=== PATIENT | male | born 1960 | race African-American/Black ===

== ENCOUNTER 2017-10-03 20:54 | Observation (INO) | payer OTHER ==
[2017-10-03] MEDS: SODIUM CHLORIDE 0.9% FLUSH 10 ML FLUSH IVF (21:20)
[2017-10-03 21:24] LABS: AUTOMATED NEUTROPHIL # 7.3 TH/MM3 (1.8-7.7); BASOPHIL % 0.4 % (0.0-2.0); EOSINOPHIL # 0.2 TH/MM3 (0-0.4); HEMATOCRIT 33.3 % (39.0-51.0); HEMOGLOBIN 10.7 GM/DL (13.0-17.0); LYMPH % 22.9 % (9.0-44.0); LYMPHOCYTE # 2.5 TH/MM3 (1.0-4.8); MEAN CELL VOLUME 82.3 FL (80.0-100.0); MEAN CORPUSCULAR HEMOGLOBIN 26.4 PG (27.0-34.0); MEAN CORPUSCULAR HGB CONC 32.1 % (32.0-36.0); MONO % 8.3 % (0.0-8.0); MONOCYTE # 0.9 TH/MM3 (0-0.9); NEUT % 66.4 % (16.0-70.0); PLATELET COUNT 197 TH/MM3 (150-450); RED BLOOD COUNT 4.05 MIL/MM3 (4.50-5.90); RED CELL DISTRIBUTION WIDTH 17.8 % (11.6-17.2); WHITE BLOOD COUNT 10.9 TH/MM3 (4.0-11.0)
[2017-10-03 21:33] LABS: CHLORIDE 102 MEQ/L (98-107); HEMO FLAGS DIFF FINAL; POTASSIUM 3.5 MEQ/L (3.5-5.1); SODIUM (NA) 138 MEQ/L (136-145)
[2017-10-03 21:36] LABS: ANION GAP 6 MEQ/L (5-15); BICARBONATE 30.1 MEQ/L (21.0-32.0); CALCIUM 8.5 MG/DL (8.5-10.1); GLUCOSE,RANDOM 167 MG/DL (74-106)
[2017-10-03 21:37] LABS: BLOOD UREA NITROGEN 21 MG/DL (7-18)
[2017-10-03 21:38] LABS: APTT (PATIENT) 28.4 SEC (24.3-30.1); PROTHROMBIN TIME - PATIENT 10.1 SEC (9.8-11.6)
[2017-10-03 21:40] LABS: GLOMERULAR FILTRATION RATE 40 ML/MIN (>89)
[2017-10-03 21:43] LABS: CREATINE KINASE 171 U/L (39-308)
[2017-10-03 21:44] LABS: TROPONIN I 0.02 NG/ML (0.02-0.05)
[2017-10-03 21:55] LABS: CKMB 1.7 NG/ML (0.5-3.6)
[2017-10-03 22:51] LABS: BILIRUBIN, URINE NEG (NEG); BLOOD, URINE NEG (NEG); GLUCOSE,URINE NEG (NEG); KETONE, URINE TRACE mg/dL (NEG); NITRITE,URINE NEG (NEG); PH, URINE 5.5 (5.0-8.5); URINE COLOR YELLOW (YELLW/STRAW); URINE LEUKOCYTE ESTERASE TRACE (NEG)
[2017-10-03] MEDS: SODIUM CHLOR 0.9% 1000 ML INJ 1,000 ML IV (22:51)
[2017-10-03] MEDS: DIAZEPAM 5 MG TAB PO (22:51)
[2017-10-03] MEDS: SODIUM CHLORIDE 0.9% FLUSH 10 ML FLUSH IV FLUSH (22:52)
[2017-10-03 22:56] LABS: COMMENT (UR) CULT NOT INDICATED; CULTURE IF INDICATED CULT NOT INDICATED; RBC, URINE 0-3 /hpf (0-3); SQUAMOUS EPITHELIAL CELL URINE 0-5 /hpf (0-5)
[2017-10-03 23:00] LABS: AMPHETAMINE, URINE NEG (NEG)
[2017-10-03 23:08] LABS: BARBITURATES, URINE NEG (NEG)
[2017-10-03 23:10] LABS: BENZODIAZEPINE,URINE POS (NEG)
[2017-10-03 23:12] LABS: CANNABINOIDS, URINE NEG (NEG)
[2017-10-03 23:13] LABS: COCAINE, URINE NEG (NEG)
[2017-10-04] MEDS: CARVEDILOL 6.25 MG TAB PO (00:01)
[2017-10-04 00:49] LABS: CREATINE KINASE 242 U/L (39-308); TROPONIN I LESS THAN 0.02 NG/ML (0.02-0.05)
[2017-10-04 01:01] LABS: CKMB 1.4 NG/ML (0.5-3.6)
[2017-10-04 04:06] LABS: CREATINE KINASE 144 U/L (39-308)
[2017-10-04 04:07] LABS: TROPONIN I LESS THAN 0.02 NG/ML (0.02-0.05)
[2017-10-04 04:18] LABS: CKMB 1.5 NG/ML (0.5-3.6)
[2017-10-04] MEDS: INSULIN ASPART SUPPLEMENTAL SCALE SQ ×2 (07:57→12:00)
[2017-10-04] MEDS: TAMSULOSIN HCL 0.4 MG CAP PO (08:30)
[2017-10-04] MEDS: PREGABALIN 75 MG CAP PO (08:31)
[2017-10-04] MEDS: PANTOPRAZOLE SOD 40 MG DELAYED RELEASE TAB PO (08:31)
[2017-10-04] MEDS: ASPIRIN 81 MG CHEW TAB PO (08:31)
[2017-10-04] MEDS: SODIUM CHLORIDE 0.9% FLUSH 10 ML FLUSH IV FLUSH (08:32)
[2017-10-04 08:49] LABS: CHLORIDE 103 MEQ/L (98-107); POTASSIUM 3.3 MEQ/L (3.5-5.1); SODIUM (NA) 139 MEQ/L (136-145)
[2017-10-04 08:52] LABS: ANION GAP 7 MEQ/L (5-15); BICARBONATE 29.4 MEQ/L (21.0-32.0); BLOOD UREA NITROGEN 22 MG/DL (7-18); CALCIUM 8.5 MG/DL (8.5-10.1); GLUCOSE,RANDOM 163 MG/DL (74-106)
[2017-10-04 08:55] LABS: GLOMERULAR FILTRATION RATE 42 ML/MIN (>89)
[2017-10-04] MEDS ORDERED: ATORVASTATIN 40 MG TAB PO (21:00)
== END 2017-10-04 14:50 | disposition home or self-care (01) ==
LOC: PHED 20:54 → PHEDA 22:01 → PH3A 23:25
DX: R07.89 Other chest pain (principal); I12.9 Hypertensive chronic kidney disease with stage 1 through stage 4 chronic kidney disease, or unspecified chronic kidney disease; N18.2 Chronic kidney disease, stage 2 (mild); E11.22 Type 2 diabetes mellitus with diabetic chronic kidney disease; E78.5 Hyperlipidemia, unspecified; E11.40 Type 2 diabetes mellitus with diabetic neuropathy, unspecified; I44.1 Atrioventricular block, second degree; I44.0 Atrioventricular block, first degree; I49.3 Ventricular premature depolarization; R00.1 Bradycardia, unspecified; R94.31 Abnormal electrocardiogram [ECG] [EKG]; R20.0 Anesthesia of skin; J44.9 Chronic obstructive pulmonary disease, unspecified; N17.9 Acute kidney failure, unspecified; M54.2 Cervicalgia; M54.9 Dorsalgia, unspecified; G89.29 Other chronic pain; N40.0 Benign prostatic hyperplasia without lower urinary tract symptoms; E66.01 Morbid (severe) obesity due to excess calories; Z79.899 Other long term (current) drug therapy; Z79.82 Long term (current) use of aspirin; Z79.84 Long term (current) use of oral hypoglycemic drugs; Z82.49 Family history of ischemic heart disease and other diseases of the circulatory system
CPT/HCPCS: 71045; 76775; 80048; 80307; 81001; 82550; 82552; 84484; 85025; 85610; 85730; 93005; 96360; 99285-25

== ENCOUNTER 2017-12-12 10:26 | Inpatient (IN) ==
[2017-12-12 10:57] LABS: Hematocrit 28.3 % (39.0-51.0); Hemoglobin 9.5 gm/dL (13.0-17.0); Mean Corpuscular HGB Conc 33.7 % (32.0-36.0); Mean Corpuscular Hemoglobin 27.6 pg (27.0-34.0); Mean Corpuscular Volume 81.8 fL (80.0-100.0); Mean Platelet Volume 9.5 fL (7.0-11.0); Platelet Count 189 th/mm3 (150-450); Red Blood Count 3.45 mil/mm3 (4.50-5.90); Red Cell Distribution Width 20.6 % (11.6-17.2); White Blood Count 15.1 th/mm3 (4.0-11.0)
[2017-12-12 11:06] LABS: Calcium 7.6 mg/dL (8.5-10.1); Carbon Dioxide 31.7 meq/L (21.0-32.0)
[2017-12-12 11:14] LABS: Troponin I 0.04 ng/mL (0.02-0.05)
--- NOTE | 2017-12-12 11:22 | XR ---
EXAM DATE: 12/12/2017 11:01 AM EDT AGE/SEX: 57 years / Male INDICATIONS: . Short of breath, chest pain. CLINICAL DATA: This is the patient's initial encounter. Patient reports that signs and symptoms have been present for 3 days and indicates a pain score of 3/10. MEDICAL/SURGICAL HISTORY: Diabetes mellitus type II. Hypertension. . cardiac cath COMPARISON: [facility], CHEST SINGLE AP, 10/03/2017. . FINDINGS: The heart is at the upper limits of normal in size. The mediastinal contours are within normal limits . The parenchyma is clear. Exam is somewhat limited due to the patient's size. The visualized bony st ructures are grossly intact. Study appears similar to previous dated 10/03/2017. CONCLUSION: Limited exam due to the patient's size. No acute abnormality identified. Electronically signed by: Hussain Harden MD 12/12/2017 11:21 AM EDT
[2017-12-12] MEDS ORDERED: Acetaminophen 325 MG Tablet PO ONE (11:28)
[2017-12-12 11:31] LABS: Prothrombin Time 10.2 sec (9.8-11.6)
--- NOTE | 2017-12-12 11:33 | ED ---
HPI General Chief complaint: Respiratory Symptoms Stated complaint: Evac/SOB Time Seen by Provider: 12/12/17 10:28 Source: patient Mode of arrival: wheelchair History of Present Illness HPI narrative: 57yM presenting with dyspnea. The patient says that he's had shortness of breath, cough, and lower extremity swelling for the past week; he called EMS today because he was unable to catch his breath. Admits to cough productive of pink frothy sputum and wheezing. Denies lightheadedness, diaphoresis, chest pain, or palpitations. He was given solumedrol and nebs by EMS with minimal improvement in symptoms. As per previous records, he has a history of hypertension, hyperlipidemia, morbid obesity, diabetes, chronic pain , diabetic neuropathy, and chronic kidney disease stage II. Family history non-contributory. Related Data Allergies Allergy/AdvReac Type Severity Reaction Status Date / Time Sulfa (Sulfonamide Allergy Severe RASH Verified 12/12/17 10:53 Antibiotics) Review of Systems Except as stated in HPI: all other systems reviewed are negative Constitutional Reports headache(s) Eyes Denies blurry vision ENT Denies nasal congestion Cardiovascular Denies chest pain Respiratory Reports cough and Reports dyspnea Gastrointestinal Denies nausea Genitourinary Denies dysuria Musculoskeletal Reports back pain Neurologic Denies confusion Psychiatric Denies confusion PMFSH History History Provided By: Patient Medical History Medical History Diabetes 1.5, managed as type 2 (Acute) Diabetic neuropathy (Acute) GERD (gastroesophageal reflux disease) (Acute) Osteoarthritis (arthritis due to wear and tear of joints) (Acute) CHF (congestive heart failure) (Acute) COPD (chronic obstructive pulmonary disease) (Acute) Surgical History Surgical History History of carpal tunnel surgery of left wrist (Acute) Hx of rotator cuff surgery (Acute) Social History Social History Substance History: No History of Abuse Second Hand Smoke Exposure: No Smoking Status: Never smoker How Often Do You Have a Drink Containing Alcohol: Monthly or less Recent Travel in [facility] within the Last 8 Weeks: No Recent Out of Country Travel within the Last 8 Weeks: No Exam Const Other: Appears uncomfortable, increased work of breathing HENMT Head: normocephalic and atraumatic Face and sinus: normal facial exam Eyes General: appearance normal, both eyes and all related structures Pupils: PERRL Chest Chest: normal inspection of the chest Resp Other: Increased work of breathing, able to speak in complete sentences, O2 sats high 60s on room air and improved to low 90s on 5L nasal cannula Diminished breath sounds at bases bilaterally, (+) expiratory wheeze and crackles bilaterally Cardio Rate: regular rate Rhythm: regular rhythm GI Inspection: non-distended Palpation: soft and nontender Skin General: no rashes or lesions noted Neuro General: alert, awake, oriented x3 and no focal motor deficits Extrem Other: 2-3+ pitting edema above knees bilaterally Psych Affect: normal affect Course Initial Documented Vital Signs Pulse Rate 74 12/12/17 10:28 Last Documented Vital Signs Temperature 99.3 F 12/12/17 10:40 Pulse Rate 71 12/12/17 11:30 Respiratory Rate 24 12/12/17 11:30 Blood Pressure 142/73 H 12/12/17 11:30 Pulse Oximetry 95 12/12/17 11:30 Critical Care Time Critical Care Time: Yes Total Critical Care Time: 35 Attestation: Total critical care time 35 minutes. This includes examining and stabilizing the patient, gathering a history from a source other than the patient (i.e., chart review, EMS), formulating a differential diagnosis, ordering and interpreting laboratory tests and EKG, ordering and interpreting radiology tests, discussing the patient's care with other providers (internal medicine), management of heparin drip and supplemental oxygen for profound hypoxia, and re-evaluation at frequent intervals. Medical Decision Making MDM Narrative Medical decision making narrative: Assessment: 57yM presenting with shortness of breath, cough, hypoxia Plan: EKG and monitor Labs, including trop CXR ASA Nitro Lasix Reassess Addendum: Patient given SL nitro and lasix, O2 sats now mid 90s on 5L NC. Labs remarkable for acute on chronic kidney insufficiency, elevated D dimer, leukocytosis, hyperglycemia, and initial troponin of 0.04. This patient cannot go home as he needs cardiac monitoring, supplemental O2, heparin drip, further diagnostic testing to r/o PE and ACS, and re-evaluation at frequent intervals. I discussed the results of all labs and imaging with the patient as well as plan to keep him in the hospital; he understands and agrees. Case discussed with Dr. Castelan of internal medicine service, who requests [facility] bed. Differential Diagnosis Differential Diagnosis: Differential diagnosis includes, but is not limited to: CHF exacerbation, COPD exacerbation, pneumonia, pleural effusion Medical Records Medical records reviewed: Yes I reviewed the patient's medical records. Lab Data Lab results reviewed: Yes I reviewed the patient's lab results. Result diagrams: 12/12/17 10:30 12/12/17 10:30 Lab Results 12/12/17 12/12/17 12/12/17 Range/Units 10:30 10:30 10:30 CBC w Diff Slide review pending WBC 15.1 H (4.0-11.0) th/mm3 RBC 3.45 L (4.50-5.90) mil/mm3 Hgb 9.5 L (13.0-17.0) gm/dL Hct 28.3 L (39.0-51.0) % MCV 81.8 (80.0-100.0) fL MCH 27.6 (27.0-34.0) pg MCHC 33.7 (32.0-36.0) % RDW 20.6 H (11.6-17.2) % Plt Count 189 (150-450) th/mm3 MPV 9.5 (7.0-11.0) fL WBC Differential Manual diff final Seg Neuts % (Manual) 76 H (16-70) % Band Neuts % (Manual) 1 (0-6) % Lymphocytes % (Manual) 15 (9-44) % Monocytes % (Manual) 6 (0-8) % Basophils % (Manual) 2 (0-2) % Abs Neuts (Manual) 11.6 H (1.8-7.7) th/mm3 Differential Comment . Platelet Estimate Normal (Normal) Platelet Morphology Normal (Normal) Basophilic Stippling Faint H (None) PT 10.2 (9.8-11.6) sec INR 1.0 Ratio D-Dimer Quant (PE/DVT) 2.30 H (0.00-0.50) mg/L FEU Sodium 140 (136-145) meq/L Potassium 4.0 (3.5-5.1) meq/L Chloride 102 (98-107) meq/L Carbon Dioxide 31.7 (21.0-32.0) meq/L Anion Gap 6 (5-15) meq/L BUN 24 H (7-18) mg/dL Creatinine 2.40 H (0.60-1.30) mg/dL Estimated GFR 34 L (>89) mL/min Random Glucose 231 H (74-106) mg/dL Calcium 7.6 L (8.5-10.1) mg/dL Troponin I 0.04 (0.02-0.05) ng/mL B-Natriuretic Peptide (0-100) pg/mL 12/12/17 Range/Units 10:30 CBC w Diff WBC (4.0-11.0) th/mm3 RBC (4.50-5.90) mil/mm3 Hgb (13.0-17.0) gm/dL Hct (39.0-51.0) % MCV (80.0-100.0) fL MCH (27.0-34.0) pg MCHC (32.0-36.0) % RDW (11.6-17.2) % Plt Count (150-450) th/mm3 MPV (7.0-11.0) fL WBC Differential Seg Neuts % (Manual) (16-70) % Band Neuts % (Manual) (0-6) % Lymphocytes % (Manual) (9-44) % Monocytes % (Manual) (0-8) % Basophils % (Manual) (0-2) % Abs Neuts (Manual) (1.8-7.7) th/mm3 Differential Comment Platelet Estimate (Normal) Platelet Morphology (Normal) Basophilic Stippling (None) PT (9.8-11.6) sec INR Ratio D-Dimer Quant (PE/DVT) (0.00-0.50) mg/L FEU Sodium (136-145) meq/L Potassium (3.5-5.1) meq/L Chloride (98-107) meq/L Carbon Dioxide (21.0-32.0) meq/L Anion Gap (5-15) meq/L BUN (7-18) mg/dL Creatinine (0.60-1.30) mg/dL Estimated GFR (>89) mL/min Random Glucose (74-106) mg/dL Calcium (8.5-10.1) mg/dL Troponin I (0.02-0.05) ng/mL B-Natriuretic Peptide 486 H (0-100) pg/mL Imaging Data Radiologist's impression: Chest X-Ray 12/12/17 10:28 CONCLUSION: Limited exam due to the patient's size. No acute abnormality identified. ECG Data Interpretation: Rate: 78 BPM Rhythm: Sinus [place]: Normal Intervals: 1st degree AV block, QTc 421 ms Q waves: III, aVF T waves: Inverted in III, aVF ST segments: No elevations or depressions Impression: Non-specific EKG, no changes as compared to EKG from 10/04/2017. Discharge Plan Discharge Disposition Patient Disposition: 30 Still Patient Discharge Condition Condition: Serious Discharge Details Diagnosis: Hypoxia, D-dimer, elevated, Acute respiratory distress, Acute on chronic renal insufficiency Physicians Team ED Provider: Albina Jonas Primary Care Provider: UNKNOWN, Attending Provider: Marva Castelan Discharge Interventions Interventions: Vital Signs Last Done: 12/12/17 11:30 Status ED Status: Admitted Observation Patient
[2017-12-12 11:38] LABS: Lymphocytes 15 % (9-44); Monocytes 6 % (0-8)
[2017-12-12 11:41] LABS: Platelet Estimate Normal (Normal); Platelet Morphology Normal (Normal)
[2017-12-12 11:46] LABS: D-Dimer 2.3 mg/L FEU (0.00-0.50)
[2017-12-12] MEDS ORDERED: Heparin 10,000 UNITS/10 ML Vial (for IV use) IV.PUSH STA (12:12)
[2017-12-12] MEDS ORDERED: Heparin Drip 25,000 UNIT/250 ML BAG IV.CONT PRN (12:12)
[2017-12-12 12:43] LABS: ABG Base Excess 5.5 mmol/L (-2-2); ABG PCO2 52 mmHg (38-42); ABG PO2 64 mmHg (61-120)
[2017-12-12] MEDS ORDERED: Dextrose 50% in Water 50 ML Vial IV.PUSH PRN (13:50)
--- NOTE | 2017-12-12 14:18 | P.HPIM ---
History of Present Illness Primary Care Physician: UNKNOWN Chief Complaint: This patient has shortness of breath History of Present Illness: Patient is a pleasant 67-year-old gentleman with diabetes and hypertension who comes in hospital complaining of increased work of breathing and shortness of breath for the last 3 days. He saw his doctor in was scheduled to follow-up but became increasingly short of breath and so he called 9 1. New quite hypoxemic on arrival. He notes no fevers or chills but did have a cough with production of pink frothy sputum. Patient reports 40 pound weight gain in about a month. Recently he had back surgery done and is has a sedentary style life. He has not had any fevers or chills. He does have CPAP nebulizer at home. He has a history of asthma but denies cardiac history. He has been admitted to the hospital for acute respiratory failure with gross hypoxemia at 70% on room air he is required 5 L O2 to maintain sats above 90%. He is admitted to the intermediate critical care unit - Diagnosis (1) Respiratory failure (2) Asthma (3) CHF (congestive heart failure) (4) DM2 (diabetes mellitus, type 2) Inpatient Certification: I certify that the inpatient services were ordered in accordance with Medicare regulations governing the order. This includes certification that hospital inpatient services are reasonable and necessary and in the case of services not specified as inpatient-only under 42 CFR 419.22(n), that they are appropriately provided as inpatient services in accordance to with the 2-midnight benchmark under 43 CFR 412.3(e) Estimated Total Length of Stay (Days): 4 Plans for Post Hospital Care: Home health Review of Systems All other systems reviewed negative except as stated in [facility] - History History Provided By: Patient - Medical History Medical History: Medical History (Last Reviewed 12/12/17 @ 14:07 by Marva Castelan MD) Diabetes 1.5, managed as type 2 Diabetic neuropathy GERD (gastroesophageal reflux disease) Osteoarthritis (arthritis due to wear and tear of joints) CHF (congestive heart failure) COPD (chronic obstructive pulmonary disease) - Surgical History Surgical History: Surgical History (Last Reviewed 12/12/17 @ 14:07 by Marva Castelan MD) History of carpal tunnel surgery of left wrist Hx of rotator cuff surgery - Family History Family History: Family History (Last Updated 12/12/17 @ 14:07 by Marva Castelan MD) Other Congestive heart failure Coronary artery disease - Tobacco History Second Hand Smoke Exposure: No Smoking Status: Never smoker - Alcohol History How Often Do You Have a Drink Containing Alcohol: Never - Substance Use History Substance History: No History of Abuse - Travel History Recent Travel in the [place] Within the Last 8 Weeks: No Recent Travel Out of the Country Within the Last 8 Weeks: No - Immunization History Tetanus Immunization: >5 Years Hx Influenza Vaccine This Season: Yes Medications and Allergies Active Medications: Active Medications Acetaminophen (Tylenol) 650 mg PO Q6H PRN PRN Reason: PAIN 1-10 AND/OR FEVER >101F Albuterol (Duoneb Neb (Yaz)) 1 ampul NEB Q6HR WHILE AWAKE NEB YAZ Aspirin (Ecotrin) 81 mg PO DAILY YAZ Atorvastatin Calcium (Lipitor) 80 mg PO HS YAZ Carvedilol (Coreg) 6.25 mg PO BID YAZ Chlorhexidine Gluconate (Chlorhexidine 2% Cloth) 3 pack TOPICAL DAILY@0400 YAZ Stop: 12/18/17 03:59 Chlorhexidine Gluconate (Chlorhexidine 2% Cloth) 3 pack TOPICAL DAILY@0400 PRN PRN Reason: Extra cloth needed Stop: 12/18/17 03:59 Clonidine HCl (Catapres) 0.2 mg PO BID [facility] Dextrose (D50w Vial) 50 ml IV.PUSH UNSCH PRN PRN Reason: PER HYPOGLYCEMIA PROTOCOL Diazepam (Valium) 5 mg PO HS YAZ Famotidine (Pepcid) 20 mg PO BID YAZ Furosemide (Lasix Inj) 20 mg IV.PUSH DAILY YAZ Glipizide (Glucotrol) 10 mg PO BID YAZ Glucagon (Glucagon Inj) 1 mg OTHER PRN PRN PRN Reason: for Hypoglycemia Protocol Heparin Sodium (Porcine) (Heparin Inj) 5,000 units SQ Q12HR YAZ Insulin Aspart (Novolog Insulin Correctional Sugar Inj) 0 unit SQ ACHS AND 3AM YAZ; Protocol Methylprednisolone Sodium Succinate (Solumedrol Inj) 40 mg IV.PUSH Q12HR YAZ Non-Formulary Medication (Losartan-Hydrochlorothiazide [Losartan- Hydrochlorothiazide]) 1 tab PO DAILY [facility] Non-Formulary Medication (Pregabalin [Pregabalin]) 150 mg PO BID YAZ Pioglitazone HCl (Actos) 15 mg PO DAILY YAZ Sodium Chloride (Ns Flush) 2 ml IV.FLUSH UNSCH PRN PRN Reason: FLUSH AFTER USING IV ACCESS Tamsulosin HCl (Flomax) 0.4 mg PO DAILY YAZ Zolpidem Tartrate (Ambien) 10 mg PO HS [facility] Allergies Allergy/AdvReac Type Severity Reaction Status Date / Time Sulfa (Sulfonamide Allergy Severe RASH Verified 12/12/17 10:53 Antibiotics) Home Medications Medication Instructions Recorded Confirmed Type amlodipine 10 mg PO DAILY 12/12/17 12/12/17 History aspirin 81 mg PO DAILY 12/12/17 12/12/17 History atorvastatin 80 mg PO HS 12/12/17 12/12/17 History carvedilol 6.25 mg PO BID 12/12/17 12/12/17 History celecoxib 200 mg PO BID 12/12/17 12/12/17 History clonidine HCl 1 tab PO BID 12/12/17 12/12/17 History diazepam 5 mg PO HS 12/12/17 12/12/17 History glipizide 10 mg PO BID 12/12/17 12/12/17 History losartan-hydrochlorothiazide 1 tab PO DAILY 12/12/17 12/12/17 History metformin 500 mg PO BID 12/12/17 12/12/17 History omeprazole 40 mg PO DAILY 12/12/17 12/12/17 History pioglitazone 15 mg PO DAILY 12/12/17 12/12/17 History pregabalin 150 mg PO BID 12/12/17 12/12/17 History tamsulosin 0.4 mg PO DAILY 12/12/17 12/12/17 History zolpidem 10 mg PO HS 12/12/17 12/12/17 History Exam Vital signs: Vital Signs 12/12/17 10:28 12/12/17 10:40 12/12/17 10:45 Temperature 99.3 F Pulse Rate 74 84 Respiratory Rate 24 Blood Pressure 158/66 H Pulse Oximetry 93 L 78 L 93 L 12/12/17 11:30 12/12/17 12:44 Temperature Pulse Rate 71 74 Respiratory Rate 24 24 Blood Pressure 142/73 H Pulse Oximetry 95 93 L Intake & Output 12/11/17 12/12/17 12/12/17 18:59 06:59 18:59 Weight 190 kg Narrative: GENERAL: Patient short of breath with minimal exertion SKIN: Warm and dry. No rashes or ecchymotic injuries EYES: Pupils equal and round. No scleral icterus. No injection or drainage. ENT: External ear exam normal. No acute nasal bleeding or discharge. Mucous membranes pink and moist. CARDIOVASCULAR: Cardiac with minimal exertion. No murmurs gallops or rubs appreciated RESPIRATORY: Decreased airflow and rhonchorous breath sounds bilaterally worse on the right GASTROINTESTINAL: Abdomen soft, non-tender, nondistended. Hepatic and splenic margins not palpable. MUSCULOSKELETAL: Upper extremity swelling, lower extremities without clubbing, cyanosis, or edema. No obvious deformities. NEUROLOGICAL: Awake and alert. No obvious cranial nerve deficits. Motor grossly within normal limits. Five out of 5 muscle strength in the arms and legs. Normal speech. Results - Labs CBC & Chem 7: 12/12/17 10:30 12/12/17 10:30 Labs: Short CBC 12/12/17 Range/Units 10:30 WBC 15.1 H (4.0-11.0) th/mm3 Hgb 9.5 L (13.0-17.0) gm/dL Hct 28.3 L (39.0-51.0) % Plt Count 189 (150-450) th/mm3 BMP 12/12/17 10:30 Sodium 140 Potassium 4.0 Chloride 102 Carbon Dioxide 31.7 BUN 24 H Creatinine 2.40 H Calcium 7.6 L Cardiac Enzymes 12/12/17 Range/Units 10:30 Troponin I 0.04 (0.02-0.05) ng/mL - Imaging Impressions Chest X-Ray 12/12/17 10:28 CONCLUSION: Limited exam due to the patient's size. No acute abnormality identified. Caprini VTE Risk Assessment Caprini VTE Risk Assessment: Moderate/High Risk (score >= 2) Caprini Risk Assessment Model: Point Value = 1 Point Value = 2 Point Value = 3 Point Value = 5 Age 41-60 Minor surgery BMI > 25 kg/m2 Swollen legs Varicose veins or History of unexplained or recurrent spontaneous Oral contraceptives or hormone replacement Sepsis (< 1 month) Serious lung disease, including pneumonia (< 1 month) Abnormal pulmonary function Acute myocardial infarction Congestive heart failure (< 1 month) History of inflammatory bowel disease Medical patient at bed rest Age 61-74 Arthroscopic surgery Major open surgery (> 45 min) Laparoscopic surgery (> 45 min) Malignancy Confined to bed (> 72 hours) Immobilizing plaster cast Central venous access Age >= 75 History of VTE Family history of VTE Factor V Leiden Prothrombin [id number] Lupus anticoagulant Anticardiolipin antibodies Elevated serum homocysteine Heparin-induced thrombocytopenia Other congenital or acquired thrombophilia Stroke (< 1 month) Elective arthroplasty Hip, pelvis, or leg fracture Acute spinal cord injury (< 1 month) Prophylaxis Regimen: Total Risk Factor Score Risk Level Prophylaxis Regimen 0-1 Low Early ambulation 2 Moderate Order ONE of the following: *Sequential Compression Device (SCD) *Heparin 5000 units SQ BID 3-4 Higher Order ONE of the following medications: *Heparin 5000 units SQ TID *Enoxaparin/Lovenox 40 mg SQ daily (WT < 150 kg, CrCl > 30 mL/min) *Enoxaparin/Lovenox 30 mg SQ daily (WT < 150 kg, CrCl > 10-29 mL/min) *Enoxaparin/Lovenox 30 mg SQ BID (WT < 150 kg, CrCl > 30 mL/min) AND/OR *Sequential Compression Device (SCD) 5 or more Highest Order ONE of the following medications: *Heparin 5000 units SQ TID (Preferred with Epidurals) *Enoxaparin/Lovenox 40 mg SQ daily (WT < 150 kg, CrCl > 30 mL/min) *Enoxaparin/Lovenox 30 mg SQ daily (WT < 150 kg, CrCl > 10-29 mL/min) *Enoxaparin/Lovenox 30 mg SQ BID (WT < 150 kg, CrCl > 30 mL/min) AND *Sequential Compression Device (SCD) Assessment and Plan - Assessment (1) Respiratory failure Code(s): J96.90 - Respiratory failure, unspecified, unspecified whether with hypoxia or hypercapnia Status: Acute Plan: Acute hypoxemic respiratory failure. Apparently he has been evaluated for oxygen by his primary care doctor. He appears to have multifactorial respiratory failure due to congestive heart failure and asthma exacerbation. Continue with oxygen as needed BiPAP as needed (patient has home CPAP) Diurese aggressively follow renal function and electrolytes Continue with oxygen supplementation Follow-up echocardiogram (2) Asthma Code(s): J45.909 - Unspecified asthma, uncomplicated Status: Acute Plan: Continue with steroids and bronchodilators (3) CHF (congestive heart failure) Code(s): I50.9 - Heart failure, unspecified Status: Acute Plan: Etiology unclear, follow-up echocardiogram Diuresis Patient has a mildly elevated BNP but significant edema on exam, follow-up cardiac enzymes (4) DM2 (diabetes mellitus, type 2) Code(s): E11.9 - Type 2 diabetes mellitus without complications Status: Acute Plan: he will continue with home medications for diabetes for the most part Monitor with ADA diet and sliding scale insulin H&P: Quality - VTE Deep Vein Thrombosis/Pulmonary Embolism Present on Admission: Yes
[2017-12-12] MEDS: MethylPREDNISolone Sod Succinate Inj 40 MG/ML Vial IV.PUSH SCH (15:33)
[2017-12-12] MEDS: Carvedilol 6.25 MG Tablet PO SCH ×2 (15:33→21:27)
[2017-12-12] MEDS: glipiZIDE 10 MG Tablet PO SCH (16:40)
[2017-12-12] MEDS: Insulin NovoLOG Aspart Correctional Sugar Inj SQ SCH ×2 (17:28→21:32)
--- NOTE | 2017-12-12 20:18 | ECG ---
Date Performed: 12/12/2017 Time Performed: 10:34:56 PTAGE: 57 years EKG: Sinus rhythm WITH FIRST DEGREE AV BLOCK LOW QRS VOLTAGE IN PRECORDIAL LEADS PATTERN CONSISTENT WITH PULMONARY DIS EASE ABNORMAL ECG PREVIOUS TRACING : 10/04/2017 02.59 DOCTOR: Natalie Gooden Interpretating Date/Time 12/12/2017 20:16:21
[2017-12-12] MEDS ORDERED: Famotidine 20 MG Tablet PO SCH (21:00)
[2017-12-12] MEDS: Pregabalin 75 MG Capsule PO SCH (21:28)
[2017-12-12] MEDS: diazePAM 5 MG Tablet PO SCH (21:28)
[2017-12-12] MEDS: Zolpidem Tartrate 5 MG Tablet PO SCH (21:29)
[2017-12-12] MEDS: Heparin - SQ 10,000 UNITS/ML Vial SQ SCH (21:30)
[2017-12-12] MEDS: Acetaminophen 325 MG Tablet PO PRN (21:36)
[2017-12-13] MEDS: Insulin NovoLOG Aspart Correctional Sugar Inj SQ SCH ×5 (03:02→21:05)
[2017-12-13] MEDS: Chlorhexidine Gluconate 2% 1 Pack (2 Cloths) TOPICAL SCH (03:55)
[2017-12-13] MEDS: MethylPREDNISolone Sod Succinate Inj 40 MG/ML Vial IV.PUSH SCH ×2 (03:59→17:33)
[2017-12-13] MEDS ORDERED: Chlorhexidine Gluconate 2% 1 Pack (2 Cloths) TOPICAL PRN (04:00)
[2017-12-13 04:39] LABS: Baso # (Auto) 0.4 th/mm3 (0.0-0.2); Baso % (Auto) 2.5 % (0.0-2.0); Eos % (Auto) 0.1 % (0.0-4.0); Hematocrit 30.6 % (39.0-51.0); Hemoglobin 9.8 gm/dL (13.0-17.0); Lymph # (Auto) 1.2 th/mm3 (1.0-4.8); Lymph % (Auto) 8.1 % (9.0-44.0); Mean Corpuscular Hemoglobin 26.7 pg (27.0-34.0); Mean Corpuscular Volume 83.4 fL (80.0-100.0); Mean Platelet Volume 8.8 fL (7.0-11.0); Mono # (Auto) 0.5 th/mm3 (0.0-0.9); Mono % (Auto) 3.3 % (0.0-8.0); Neut # (Auto) 12.5 th/mm3 (1.8-7.7); Platelet Count 207 th/mm3 (150-450); Red Blood Count 3.67 mil/mm3 (4.50-5.90); Red Cell Distribution Width 19.9 % (11.6-17.2); White Blood Count 14.6 th/mm3 (4.0-11.0)
[2017-12-13 05:00] LABS: Alanine Aminotransferase 35 U/L (12-78); Albumin 2.7 g/dL (3.4-5.0); Anion Gap 5 meq/L (5-15); Aspartate Aminotransferase 19 U/L (15-37); Blood Urea Nitrogen 29 mg/dL (7-18); Calcium 8.2 mg/dL (8.5-10.1); Carbon Dioxide 32.4 meq/L (21.0-32.0); Chloride 101 meq/L (98-107); Glomerular Filtration Rate 31 mL/min (>89); Glucose,Random 240 mg/dL (74-106); Potassium 4.9 meq/L (3.5-5.1); Sodium 138 meq/L (136-145); Total Protein 7.1 g/dL (6.4-8.2)
[2017-12-13 05:02] LABS: Ovalocytes 1+; Platelet Estimate Normal (Normal); Platelet Morphology Normal (Normal)
[2017-12-13 05:07] LABS: Alkaline Phosphatase 96 U/L (45-117)
[2017-12-13 05:33] LABS: ABG Base Excess 5.7 mmol/L (-2-2); ABG PCO2 47 mmHg (38-42); ABG PO2 68 mmHg (61-120)
[2017-12-13] MEDS: Acetaminophen 325 MG Tablet PO PRN (06:06)
[2017-12-13] MEDS: Heparin - SQ 10,000 UNITS/ML Vial SQ SCH ×2 (08:38→20:37)
[2017-12-13] MEDS: Famotidine 20 MG Tablet PO SCH ×2 (08:40→20:35)
[2017-12-13] MEDS: Pregabalin 75 MG Capsule PO SCH ×2 (08:40→20:36)
[2017-12-13] MEDS: glipiZIDE 10 MG Tablet PO SCH ×2 (08:41→17:34)
[2017-12-13] MEDS: Carvedilol 6.25 MG Tablet PO SCH ×2 (08:43→20:36)
[2017-12-13] MEDS: hydroCHLOROthiazide 25 MG Tablet PO SCH (08:43)
[2017-12-13] MEDS ORDERED: Non-Formulary Drug (Losartan-Hydrochlorothiazide [Losartan-Hydrochlorothiazide] 1 TAB) PO SCH (09:00)
--- NOTE | 2017-12-13 10:44 | P.PNIM ---
Subjective Interval history: Patient seen and evaluated in follow-up for congestive heart failure exacerbation. Patient with respiratory failure requiring oxygen/hypoxemic. 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 Patient reports today's having back pain and would like his Lortab Physical Exam Vital signs: Vital Signs 12/12/17 10:28 12/12/17 10:40 12/12/17 10:45 Temperature 99.3 F Pulse Rate 74 84 Respiratory Rate 24 Blood Pressure 158/66 H Pulse Oximetry 93 L 78 L 93 L 12/12/17 11:30 12/12/17 12:10 12/12/17 12:44 Temperature Pulse Rate 71 74 Respiratory Rate 24 22 24 Blood Pressure 142/73 H Pulse Oximetry 95 93 L 12/12/17 13:28 12/12/17 14:00 12/12/17 16:00 Temperature Pulse Rate 70 70 74 Respiratory Rate 22 20 Blood Pressure 149/78 H 161/91 H 160/94 H Pulse Oximetry 96 96 12/12/17 16:50 12/12/17 17:00 12/12/17 18:00 Temperature Pulse Rate 68 66 72 Respiratory Rate 19 17 20 Blood Pressure 156/93 H 163/84 H 157/85 H Pulse Oximetry 95 95 95 12/12/17 19:00 12/12/17 19:15 12/12/17 20:00 Temperature 98.4 F 98 F Pulse Rate 76 72 72 Respiratory Rate 23 17 18 Blood Pressure 140/78 156/96 H Pulse Oximetry 94 L 94 L 98 12/12/17 21:00 12/12/17 22:00 12/12/17 22:06 Temperature Pulse Rate 76 76 Respiratory Rate 24 22 18 Blood Pressure 156/73 H 151/75 H Pulse Oximetry 91 L 94 L 12/12/17 23:00 12/13/17 00:00 12/13/17 01:00 Temperature 98 F Pulse Rate 72 66 66 Respiratory Rate 29 H 15 15 Blood Pressure 160/86 H 142/92 H 148/83 H Pulse Oximetry 95 97 97 12/13/17 02:00 12/13/17 03:00 12/13/17 04:00 Temperature 97.6 F Pulse Rate 66 66 66 Respiratory Rate 31 H 29 H 15 Blood Pressure 164/83 H 151/83 H 156/90 H Pulse Oximetry 96 96 95 12/13/17 05:07 12/13/17 06:00 12/13/17 06:37 Temperature Pulse Rate 72 68 Respiratory Rate 29 H 27 H 17 Blood Pressure 154/90 H 146/97 H Pulse Oximetry 94 L 99 12/13/17 07:00 12/13/17 07:33 12/13/17 08:00 Temperature 98.4 F Pulse Rate 68 72 72 Respiratory Rate 15 25 H Blood Pressure 165/96 H 161/95 H Pulse Oximetry 100 97 95 12/13/17 09:00 12/13/17 09:02 12/13/17 09:53 Temperature Pulse Rate 74 72 Respiratory Rate 18 19 20 Blood Pressure 173/97 H 174/99 H Pulse Oximetry 98 98 12/13/17 10:00 Temperature Pulse Rate 70 Respiratory Rate 24 Blood Pressure 181/97 H Pulse Oximetry 97 Intake & Output 12/12/17 12/13/17 12/13/17 18:59 06:59 18:59 Intake Total 720 / 720 510 / 510 Output Total 675 / 675 950 / 950 Balance 45 / 45 -440 / -440 Weight 181.8 kg 181.5 kg Intake: Oral 720 / 720 510 / 510 Output: Urine 675 / 675 950 / 950 Other: Date of Last Bowel Movement 12/11/17 Weight On Admission 190 kg Narrative: GENERAL: Patient calm resting complaining of back pain with movement and shortness of breath SKIN: Warm and dry. No rashes or ecchymotic injuries EYES: Pupils equal and round. No scleral icterus. No injection or drainage. ENT: External ear exam normal. No acute nasal bleeding or discharge. Mucous membranes pink and moist. CARDIOVASCULAR: Regular rate and rhythm. No murmurs gallops or rubs appreciated RESPIRATORY: Good air flow and effort without accessory muscle use. Clear to auscultation. Breath sounds equal bilaterally. GASTROINTESTINAL: Abdomen soft, non-tender, nondistended. Hepatic and splenic margins not palpable. MUSCULOSKELETAL: Extremities without clubbing, cyanosis, or edema. No obvious deformities. NEUROLOGICAL: Awake and alert. No obvious cranial nerve deficits. Motor grossly within normal limits. Five out of 5 muscle strength in the arms and legs. Normal speech. Results - Labs CBC & Chem 7: 12/13/17 04:30 12/13/17 04:30 Laboratory Results - last 24 hr 12/12/17 12/12/17 12/12/17 10:30 10:30 10:30 CBC w Diff Slide review pending WBC 15.1 H RBC 3.45 L Hgb 9.5 L Hct 28.3 L MCV 81.8 MCH 27.6 MCHC 33.7 RDW 20.6 H Plt Count 189 MPV 9.5 Neut % (Auto) Lymph % (Auto) Mckinley % (Auto) Eos % (Auto) Baso % (Auto) Neut # (Auto) Lymph # (Auto) Mckinley # (Auto) Eos # (Auto) Baso # (Auto) WBC Differential Manual diff final Diff Scan Seg Neuts % (Manual) 76 H Band Neuts % (Manual) 1 Lymphocytes % (Manual) 15 Monocytes % (Manual) 6 Basophils % (Manual) 2 Abs Neuts (Manual) 11.6 H Differential Comment . Platelet Estimate Normal Platelet Morphology Normal Basophilic Stippling Faint H Ovalocytes PT 10.2 INR 1.0 APTT D-Dimer Quant (PE/DVT) 2.30 H Puncture Site Patient Temperature O2 Saturation ABG pH ABG pCO2 ABG pO2 ABG HCO3 ABG O2 Content ABG Base Excess ABG Methemoglobin Alessandro Test Hemoglobin Carboxyhemoglobin O2 Delivery Device Liter Flow Inspired O2 Critical Value Sodium 140 Potassium 4.0 Chloride 102 Carbon Dioxide 31.7 Anion Gap 6 BUN 24 H Creatinine 2.40 H Estimated GFR 34 L POC Glucose Random Glucose 231 H Calcium 7.6 L Total Bilirubin AST ALT Alkaline Phosphatase Troponin I 0.04 B-Natriuretic Peptide Total Protein Albumin Nasal Screen MRSA (PCR) 12/12/17 12/12/17 12/12/17 10:30 10:30 12:38 CBC w Diff WBC RBC Hgb Hct MCV MCH MCHC RDW Plt Count MPV Neut % (Auto) Lymph % (Auto) Mckinley % (Auto) Eos % (Auto) Baso % (Auto) Neut # (Auto) Lymph # (Auto) Mckinley # (Auto) Eos # (Auto) Baso # (Auto) WBC Differential Diff Scan Seg Neuts % (Manual) Band Neuts % (Manual) Lymphocytes % (Manual) Monocytes % (Manual) Basophils % (Manual) Abs Neuts (Manual) Differential Comment Platelet Estimate Platelet Morphology Basophilic Stippling Ovalocytes PT INR APTT 34.9 H D-Dimer Quant (PE/DVT) Puncture Site Right radial Patient Temperature 98.6 O2 Saturation 89 L* ABG pH 7.39 ABG pCO2 52 H* ABG pO2 64 ABG HCO3 30 H ABG O2 Content 12.3 ABG Base Excess 5.5 H ABG Methemoglobin 1.0 Alessandro Test Present Hemoglobin 9.8 L Carboxyhemoglobin 2.1 O2 Delivery Device Nasal cannula Liter Flow 5.00 Inspired O2 21 Critical Value Yes Sodium Potassium Chloride Carbon Dioxide Anion Gap BUN Creatinine Estimated GFR POC Glucose Random Glucose Calcium Total Bilirubin AST ALT Alkaline Phosphatase Troponin I B-Natriuretic Peptide 486 H Total Protein Albumin Nasal Screen MRSA (PCR) 12/12/17 12/12/17 12/12/17 13:29 13:50 14:45 CBC w Diff WBC RBC Hgb Hct MCV MCH MCHC RDW Plt Count MPV Neut % (Auto) Lymph % (Auto) Mckinley % (Auto) Eos % (Auto) Baso % (Auto) Neut # (Auto) Lymph # (Auto) Mckinley # (Auto) Eos # (Auto) Baso # (Auto) WBC Differential Diff Scan Seg Neuts % (Manual) Band Neuts % (Manual) Lymphocytes % (Manual) Monocytes % (Manual) Basophils % (Manual) Abs Neuts (Manual) Differential Comment Platelet Estimate Platelet Morphology Basophilic Stippling Ovalocytes PT INR APTT D-Dimer Quant (PE/DVT) Puncture Site Patient Temperature O2 Saturation ABG pH ABG pCO2 ABG pO2 ABG HCO3 ABG O2 Content ABG Base Excess ABG Methemoglobin Alessandro Test Hemoglobin Carboxyhemoglobin O2 Delivery Device Liter Flow Inspired O2 Critical Value Sodium Potassium Chloride Carbon Dioxide Anion Gap BUN Creatinine Estimated GFR POC Glucose 183 H Random Glucose Calcium Total Bilirubin AST ALT Alkaline Phosphatase Troponin I 0.03 B-Natriuretic Peptide Total Protein Albumin Nasal Screen MRSA (PCR) Not detected 12/12/17 12/12/17 12/12/17 16:47 17:50 17:50 CBC w Diff WBC RBC Hgb Hct MCV MCH MCHC RDW Plt Count MPV Neut % (Auto) Lymph % (Auto) Mckinley % (Auto) Eos % (Auto) Baso % (Auto) Neut # (Auto) Lymph # (Auto) Mckinley # (Auto) Eos # (Auto) Baso # (Auto) WBC Differential Diff Scan Seg Neuts % (Manual) Band Neuts % (Manual) Lymphocytes % (Manual) Monocytes % (Manual) Basophils % (Manual) Abs Neuts (Manual) Differential Comment Platelet Estimate Platelet Morphology Basophilic Stippling Ovalocytes PT INR APTT 32.7 H D-Dimer Quant (PE/DVT) Puncture Site Patient Temperature O2 Saturation ABG pH ABG pCO2 ABG pO2 ABG HCO3 ABG O2 Content ABG Base Excess ABG Methemoglobin Alessandro Test Hemoglobin Carboxyhemoglobin O2 Delivery Device Liter Flow Inspired O2 Critical Value Sodium Potassium Chloride Carbon Dioxide Anion Gap BUN Creatinine Estimated GFR POC Glucose 259 H Random Glucose Calcium Total Bilirubin AST ALT Alkaline Phosphatase Troponin I Less than 0.02 L B-Natriuretic Peptide Total Protein Albumin Nasal Screen MRSA (PCR) 12/12/17 12/13/17 12/13/17 20:54 03:04 04:30 CBC w Diff Slide review pending WBC 14.6 H RBC 3.67 L Hgb 9.8 L Hct 30.6 L MCV 83.4 MCH 26.7 L MCHC 32.0 RDW 19.9 H Plt Count 207 MPV 8.8 Neut % (Auto) 86.0 H Lymph % (Auto) 8.1 L Mckinley % (Auto) 3.3 Eos % (Auto) 0.1 Baso % (Auto) 2.5 H Neut # (Auto) 12.5 H Lymph # (Auto) 1.2 Mckinley # (Auto) 0.5 Eos # (Auto) 0.0 Baso # (Auto) 0.4 H WBC Differential . Diff Scan Auto diff confirmed Seg Neuts % (Manual) Band Neuts % (Manual) Lymphocytes % (Manual) Monocytes % (Manual) Basophils % (Manual) Abs Neuts (Manual) Differential Comment . Platelet Estimate Normal Platelet Morphology Normal Basophilic Stippling Ovalocytes 1+ H PT INR APTT D-Dimer Quant (PE/DVT) Puncture Site Patient Temperature O2 Saturation ABG pH ABG pCO2 ABG pO2 ABG HCO3 ABG O2 Content ABG Base Excess ABG Methemoglobin Alessandro Test Hemoglobin Carboxyhemoglobin O2 Delivery Device Liter Flow Inspired O2 Critical Value Sodium Potassium Chloride Carbon Dioxide Anion Gap BUN Creatinine Estimated GFR POC Glucose 339 H 257 H Random Glucose Calcium Total Bilirubin AST ALT Alkaline Phosphatase Troponin I B-Natriuretic Peptide Total Protein Albumin Nasal Screen MRSA (PCR) 12/13/17 12/13/17 12/13/17 04:30 05:25 08:17 CBC w Diff WBC RBC Hgb Hct MCV MCH MCHC RDW Plt Count MPV Neut % (Auto) Lymph % (Auto) Mckinley % (Auto) Eos % (Auto) Baso % (Auto) Neut # (Auto) Lymph # (Auto) Mckinley # (Auto) Eos # (Auto) Baso # (Auto) WBC Differential Diff Scan Seg Neuts % (Manual) Band Neuts % (Manual) Lymphocytes % (Manual) Monocytes % (Manual) Basophils % (Manual) Abs Neuts (Manual) Differential Comment Platelet Estimate Platelet Morphology Basophilic Stippling Ovalocytes PT INR APTT D-Dimer Quant (PE/DVT) Puncture Site Right radial Patient Temperature 98.6 O2 Saturation 91 ABG pH 7.42 ABG pCO2 47 H ABG pO2 68 ABG HCO3 30 H ABG O2 Content 12.1 ABG Base Excess 5.7 H ABG Methemoglobin 0.5 Alessandro Test Y Hemoglobin 9.4 L Carboxyhemoglobin 1.7 O2 Delivery Device Nasal cannula Liter Flow 4.00 Inspired O2 Critical Value No Sodium 138 Potassium 4.9 D Chloride 101 Carbon Dioxide 32.4 H Anion Gap 5 BUN 29 H Creatinine 2.60 H Estimated GFR 31 L POC Glucose 242 H Random Glucose 240 H Calcium 8.2 L Total Bilirubin 0.9 AST 19 ALT 35 Alkaline Phosphatase 96 Troponin I B-Natriuretic Peptide Total Protein 7.1 Albumin 2.7 L Nasal Screen MRSA (PCR) - Imaging Impressions Chest X-Ray 12/12/17 10:28 CONCLUSION: Limited exam due to the patient's size. No acute abnormality identified. Assessment and Plan - Assessment (1) Respiratory failure Code(s): J96.90 - Respiratory failure, unspecified, unspecified whether with hypoxia or hypercapnia Status: Acute Plan: Acute hypoxemic respiratory failure. Apparently he has been evaluated for oxygen by his primary care doctor. He appears to have multifactorial respiratory failure due to congestive heart failure and asthma exacerbation. Continue with oxygen as needed BiPAP as needed (patient has home CPAP) Diurese aggressively follow renal function and electrolytes Continue with oxygen supplementation Follow-up echocardiogram (2) Asthma Code(s): J45.909 - Unspecified asthma, uncomplicated Status: Acute Plan: Continue with steroids and bronchodilators (3) CHF (congestive heart failure) Code(s): I50.9 - Heart failure, unspecified Status: Acute Plan: Etiology unclear, follow-up echocardiogram Diuresis 1.6 L out Patient has a mildly elevated BNP but significant edema on exam, cardiac enzymes stable (4) DM2 (diabetes mellitus, type 2) Code(s): E11.9 - Type 2 diabetes mellitus without complications Status: Acute Plan: he will continue with home medications for diabetes for the most part Monitor with ADA diet and sliding scale insulin Patient required 20 units of supplemental NovoLog, refuses Actos We will add low-dose long-acting Levemir and insulin with meals (5) Back pain Code(s): M54.9 - Dorsalgia, unspecified Status: Acute Plan: he says he takes Excedrin for migraines and Lortab for back pain We will resume - Plan Discharge Planning: Likely discharge in a.m., will need to verify home O2
--- NOTE | 2017-12-13 11:57 | ECHRPT ---
Indication: SHORTNESS OF BREATH CONCLUSIONS Normal left ventricular size. possible mild concentric left ventricular hypertrophy. technically limited study The left ventricular systolic function is moderately reduced with an estimated ejection fraction in the range of 40-45%. The left atrial size is mildly dilated. The right atrial size is mildly dilated. Trace mitral valve regurgitation. There is mild to moderate tricuspid valve regurgitation. The estimated pulmonary arterial pressure is 49.4 mmHg. BP: / HR: Rhythm: Sinus MEASUREMENTS (Male / Female) Normal Values Technical Quality:Fair 2D ECHO LV Diastolic Diameter PLAX 5.1 cm 4.2 - 5.9 / 3.9 - 5.3 cm LV Systolic Diameter PLAX 4.3 cm IVS Diastolic Thickness 1.9 cm 0.6 - 1.0 / 0.6 - 0.9 cm LVPW Diastolic Thickness 1.9 cm 0.6 - 1.0 / 0.6 - 0.9 cm LV Relative Wall Thickness 0.7 RV Internal Dim ED PLAX 2.9 cm LVOT Diameter 2.8 cm Aortic Root Diameter 4.1 cm LA Systolic Diameter LX 4.3 cm 3.0 - 4.0 / 2.7 - 3.8 cm M-MODE AV Cusp Separation MM 2.5 cm DOPPLER AV Peak Velocity 138.0 cm/s AV Peak Gradient 7.6 mmHg AV Mean Gradient 5.0 mmHg AV Velocity Time Integral 28.4 cm LVOT Peak Velocity 67.7 cm/s LVOT Peak Gradient 1.8 mmHg LVOT Velocity Time Integral 14.5 cm AV Area Cont Eq vti 3.1 cm AV Area Cont Eq pk 3.0 cm Mitral E Point Velocity 78.0 cm/s Mitral A Point Velocity 57.8 cm/s Mitral E to A Ratio 1.3 LV E' Lateral Velocity 10.1 cm/s Mitral E to LV E' Lateral Ratio 7.7 LV E' Septal Velocity 8.2 cm/s Mitral E to LV E' Septal Ratio 9.5 TR Peak Velocity 314.0 cm/s TR Peak Gradient 39.4 mmHg Right Atrial Pressure 10.0 mmHg Pulmonary Artery Systolic Pressu 49.4 mmHg Right Ventricular Systolic Press 49.4 mmHg PV Peak Velocity 67.7 cm/s PV Peak Gradient 1.8 mmHg FINDINGS LEFT VENTRICLE Normal left ventricular size. Severe concentric left ventricular hypertrophy. The left ventricular systolic function is moderately reduced with an estimated ejection fraction in the range of 40-45%. RIGHT VENTRICLE Normal right ventricular size and systolic function. LEFT ATRIUM The left atrial size is mildly dilated. RIGHT ATRIUM The right atrial size is mildly dilated. ATRIAL SEPTUM The interatrial septum not well visualized. AORTA The aortic root and proximal ascending aorta are normal in size on limited imaging. MITRAL VALVE Trace mitral valve regurgitation. AORTIC VALVE No aortic valve stenosis or regurgitation. TRICUSPID VALVE There is mild to moderate tricuspid valve regurgitation. The estimated pulmonary arterial pressure is 49.4 mmHg. PULMONARY VALVE The pulmonary valve is not well visualized. VESSELS The inferior vena cava was not well visualized. PERICARDIUM No pericardial effusion. Vince Garza MD, FACC, FSCAI (Electronically Signed) Final Date:13 December 2017 11:56
[2017-12-13] MEDS: Celecoxib 200 MG Capsule PO SCH ×2 (17:43→20:37)
[2017-12-13] MEDS: Zolpidem Tartrate 5 MG Tablet PO SCH (20:33)
[2017-12-13] MEDS: diazePAM 5 MG Tablet PO SCH (20:36)
[2017-12-13] MEDS ORDERED: Insulin Detemir Inj 1,000 UNIT/10 ML Vial SQ SCH (21:00)
[2017-12-14] MEDS: MethylPREDNISolone Sod Succinate Inj 40 MG/ML Vial IV.PUSH SCH (03:52)
[2017-12-14] MEDS: Insulin NovoLOG Aspart Correctional Sugar Inj SQ SCH ×3 (03:55→12:14)
[2017-12-14 05:44] LABS: Hematocrit 29.3 % (39.0-51.0); Hemoglobin 9.6 gm/dL (13.0-17.0); Mean Corpuscular HGB Conc 32.9 % (32.0-36.0); Mean Corpuscular Hemoglobin 27.5 pg (27.0-34.0); Mean Corpuscular Volume 83.5 fL (80.0-100.0); Mean Platelet Volume 9.4 fL (7.0-11.0); Platelet Count 210 th/mm3 (150-450); Red Cell Distribution Width 19.6 % (11.6-17.2); White Blood Count 16.8 th/mm3 (4.0-11.0)
[2017-12-14] MEDS: Chlorhexidine Gluconate 2% 1 Pack (2 Cloths) TOPICAL SCH (05:49)
[2017-12-14 06:15] LABS: Calcium 8.1 mg/dL (8.5-10.1); Carbon Dioxide 31.6 meq/L (21.0-32.0); Potassium 3.8 meq/L (3.5-5.1)
[2017-12-14] MEDS: hydroCHLOROthiazide 25 MG Tablet PO SCH (08:20)
[2017-12-14] MEDS: Pregabalin 75 MG Capsule PO SCH (08:20)
[2017-12-14] MEDS: glipiZIDE 10 MG Tablet PO SCH (08:20)
[2017-12-14] MEDS: Carvedilol 6.25 MG Tablet PO SCH (08:21)
[2017-12-14] MEDS: Famotidine 20 MG Tablet PO SCH (08:21)
[2017-12-14] MEDS: Celecoxib 200 MG Capsule PO SCH (08:21)
[2017-12-14] MEDS: Heparin - SQ 10,000 UNITS/ML Vial SQ SCH (08:22)
--- NOTE | 2017-12-14 13:44 | P.DS ---
Date of admission: 12/12/17 12:13 Primary care physician: UNKNOWN Brief History from admission: Patient is a pleasant 67-year-old gentleman with diabetes and hypertension who comes in hospital complaining of increased work of breathing and shortness of breath for the last 3 days. He saw his doctor in was scheduled to follow-up but became increasingly short of breath and so he called 9 1. New quite hypoxemic on arrival. He notes no fevers or chills but did have a cough with production of pink frothy sputum. Patient reports 40 pound weight gain in about a month. Recently he had back surgery done and is has a sedentary style life. He has not had any fevers or chills. He does have CPAP nebulizer at home. He has a history of asthma but denies cardiac history. He has been admitted to the hospital for acute respiratory failure with gross hypoxemia at 70% on room air he is required 5 L O2 to maintain sats above 90%. He is admitted to the intermediate critical care unit DS: Summary Hospital Course: 57-year-old male with history of type 2 diabetes, diabetic kidney disease, hypertension presented to the ER 2 days ago with dyspnea. Workup revealed elevated BNP at 486. He responded favorably to aggressive diuresis with output of 1.6 L overnight. Currently he says he is at his baseline and that he feels "great". Echocardiogram revealed an ejection fraction of 40-45%. He was given a prescription from the visit at [facility] on the day of admission to address his fluid overload but he did not have time to fill that before becoming more short of breath. Additionally he has a family history of kidney disease with both his mother and sister ending up on dialysis. I have explained to him the importance of following up with the machine shop instructor. He should also follow-up with his direct entry midwife. He is requesting to go home. He is certainly that he will be following up with [place] doctors tomorrow and arranging referrals to nephrology and cardiology. Home oxygen has been arranged , though today his oxygen is 98% on 1 L nasal cannula. It will be good to have oxygen at home on a as needed basis. I have instructed him to take the Lasix as prescribed by his primary care doctor. Further cardiac workup can be done as an outpatient, but in the meantime it is important to control his blood pressure and blood sugars. - Time Spent with Patient Total time spent providing and/or coordinating discharge services: - Quality: VTE Deep Vein Thrombosis/Pulmonary Embolism Present on Admission: Yes Exam Vital signs: Vital Signs 12/13/17 13:57 12/13/17 15:02 12/13/17 16:00 Temperature 97.5 F L 98.1 F Pulse Rate 78 70 70 Respiratory Rate 20 18 22 Blood Pressure 161/95 H 142/81 H Pulse Oximetry 97 95 12/13/17 16:10 12/13/17 16:14 12/13/17 17:00 Temperature Pulse Rate 70 70 74 Respiratory Rate 16 32 H 23 Blood Pressure 162/80 H 142/81 H Pulse Oximetry 97 96 93 L 12/13/17 18:00 12/13/17 19:00 12/13/17 19:36 Temperature Pulse Rate 74 68 73 Respiratory Rate 28 H 28 H 21 Blood Pressure Pulse Oximetry 100 96 98 12/13/17 20:00 12/13/17 20:31 12/13/17 21:00 Temperature 98.4 F Pulse Rate 73 70 68 Respiratory Rate 19 24 22 Blood Pressure 150/88 H 150/88 H Pulse Oximetry 88 L 94 L 93 L 12/13/17 22:00 12/13/17 23:00 12/13/17 23:48 Temperature Pulse Rate 70 64 62 Respiratory Rate 35 H 27 H 17 Blood Pressure 113/62 Pulse Oximetry 93 L 12/14/17 00:00 12/14/17 01:00 12/14/17 02:00 Temperature 97.7 F Pulse Rate 64 62 60 Respiratory Rate 26 H 33 H 20 Blood Pressure 113/62 Pulse Oximetry 99 12/14/17 03:00 12/14/17 03:15 12/14/17 03:17 Temperature Pulse Rate 58 L 62 60 Respiratory Rate 15 17 17 Blood Pressure 162/95 H 161/89 H Pulse Oximetry 12/14/17 04:00 12/14/17 05:00 12/14/17 06:00 Temperature 98.0 F Pulse Rate 58 L 78 56 L Respiratory Rate 16 36 H 16 Blood Pressure 161/98 H Pulse Oximetry 96 12/14/17 07:00 12/14/17 08:00 12/14/17 08:01 Temperature Pulse Rate 58 L 62 56 L Respiratory Rate 31 H 22 18 Blood Pressure 179/108 H Pulse Oximetry 96 12/14/17 08:14 12/14/17 08:34 12/14/17 09:00 Temperature 97.8 F Pulse Rate 66 66 66 Respiratory Rate 17 20 39 H Blood Pressure 193/107 H Pulse Oximetry 100 12/14/17 10:00 12/14/17 11:00 12/14/17 11:09 Temperature Pulse Rate 64 54 L 58 L Respiratory Rate 37 H 30 H 32 H Blood Pressure 163/91 H Pulse Oximetry 12/14/17 11:20 12/14/17 11:40 12/14/17 11:47 Temperature Pulse Rate 56 L 60 56 L Respiratory Rate 20 32 H 28 H Blood Pressure 167/84 H 192/115 H 176/107 H Pulse Oximetry 12/14/17 12:00 12/14/17 12:15 12/14/17 12:17 Temperature Pulse Rate 62 72 62 Respiratory Rate 23 36 H 21 Blood Pressure 180/103 H 167/94 H Pulse Oximetry 12/14/17 13:21 Temperature Pulse Rate 67 Respiratory Rate 16 Blood Pressure Pulse Oximetry Intake & Output 12/13/17 12/14/17 12/14/17 18:59 06:59 18:59 Intake Total 960 / 960 Output Total 900 / 900 Balance 60 / 60 Weight 179.1 kg Intake: Oral 960 / 960 Output: Urine 900 / 900 Other: Date of Last Bowel Movement 12/11/17 12/13/17 12/13/17 # Bowel Movements 1 Results Procedures completed during hospitalization: none Labs on day of discharge: Labs from last 24 hours 12/14/17 12/14/17 12/14/17 11:47 07:58 04:55 WBC RBC Hgb Hct MCV MCH MCHC RDW Plt Count MPV Sodium 138 Potassium 3.8 D Chloride 100 Carbon Dioxide 31.6 Anion Gap 6 BUN 40 H Creatinine 2.50 H Estimated GFR 33 L POC Glucose 203 H 134 H Random Glucose 157 H Calcium 8.1 L 12/14/17 12/14/17 12/13/17 04:55 03:08 20:30 WBC 16.8 H RBC 3.50 L Hgb 9.6 L Hct 29.3 L MCV 83.5 MCH 27.5 MCHC 32.9 RDW 19.6 H Plt Count 210 MPV 9.4 Sodium Potassium Chloride Carbon Dioxide Anion Gap BUN Creatinine Estimated GFR POC Glucose 206 H 201 H Random Glucose Calcium 12/13/17 17:33 WBC RBC Hgb Hct MCV MCH MCHC RDW Plt Count MPV Sodium Potassium Chloride Carbon Dioxide Anion Gap BUN Creatinine Estimated GFR POC Glucose 270 H Random Glucose Calcium - Impressions ITS Impressions Chest X-Ray 12/12/17 10:28 CONCLUSION: Limited exam due to the patient's size. No acute abnormality identified. Discharge Plan - Discharge Disposition Patient Disposition: 01 Discharge Home - Discharge Condition Condition: Fair - Discharge Order Discharge Orders: Discharge Order (Routine); Ordered 12/14/17 Ordered By: Pito Beltre - Discharge Details Anticipated Discharge Date: 12/14/17 - Physicians Team Primary Care Provider: UNKNOWN, Attending Provider: Pito Beltre Other Providers: Jennia,Human[facility]
== END 2017-12-14 16:25 | disposition home or self-care (01) ==
LOC: PHED 10:26 → PHEDA 10:26 → OBSVTOIN 12:13 → PHICU 13:23
PROVIDERS: ADMIT Family Medicine; ATTEND Family Medicine

== ENCOUNTER 2018-02-15 07:30 | Inpatient (IN) ==
[2018-02-15] MEDS ORDERED: Chlorhexidine Gluconate 2% 1 Pack (2 Cloths) TOPICAL ONE (09:13)
[2018-02-15] MEDS ORDERED: Metoprolol Tartrate 25 MG Tablet PO ONE (09:13)
[2018-02-15] MEDS ORDERED: Chlorhexidine 4% Topical 120 APPLIC/120 ML Bottle TOPICAL SCH (09:15)
[2018-02-15] MEDS ORDERED: Vancomycin Inj 1,000 MG in Sodium Chlor 0.9% Inj 250 ML IV.SIG SCH (10:00)
[2018-02-15] MEDS ORDERED: Sodium Chlor 0.9% Inj 500 ML IV.SIG SCH (10:00)
[2018-02-15] MEDS ORDERED: ceFAZolin 2 GM Premix Inj 2 GM/50 ML PIGGYBACK IV.SIG SCH (10:00)
[2018-02-15] MEDS ORDERED: Bupivacaine Liposomal PF 1.3% Inj 20 ML Vial ONE (10:14)
[2018-02-15] MEDS ORDERED: Lidocaine PF 1% Inj 5 ML Vial ONE (10:16)
[2018-02-15] MEDS ORDERED: Ketamine Inj 50 MG/5 ML Syringe IV.PUSH ONE (10:37)
[2018-02-15] MEDS ORDERED: Sodium Chlor 0.9% Inj 73.07 ML, Ropivacaine 0.5% PF Inj 24.63 ML, Ketorolac Inj 30 MG, ... P-ARTICULR SCH ×5 (11:00)
[2018-02-15] MEDS ORDERED: Lidocaine PF 1% Inj 5 ML Syringe OTHER ONE (11:30)
[2018-02-15] MEDS ORDERED: Glycopyrrolate Inj 1 MG/5 ML Syringe IV.PUSH ONE (11:30)
[2018-02-15] MEDS ORDERED: Succinylcholine Inj 100 MG/5 ML Syringe IV.PUSH ONE (11:30)
[2018-02-15] MEDS ORDERED: Bisacodyl 10 MG Supp RECTAL PRN (14:09)
[2018-02-15] MEDS ORDERED: Post-op Orders (for Pharmacy) OTHER STA (14:09)
[2018-02-15] MEDS ORDERED: Morphine Inj 4 MG/ML Vial IV.PUSH PRN (14:09)
[2018-02-15] MEDS ORDERED: fentaNYL Citrate Inj 100 MCG/2 ML Ampul ONE (14:18)
--- NOTE | 2018-02-15 14:27 | MP ---
cc: Los Ayala MD DATE OF OPERATION: 02/15/2018 PREOPERATIVE DIAGNOSES: 1. Right knee severe tricompartment osteoarthritis, genu valgus deformity. 2. Morbid obesity. POSTOPERATIVE DIAGNOSES: 1. Right knee severe tricompartment osteoarthritis, genu valgus deformity. 2. Morbid obesity. SURGEON: Los Ayala MD ANESTHESIA: Jina Garrido PA-C TOURNIQUET TIME: 75 minutes at 300 mmHg. DRAINS: Two. COMPLICATIONS: None. PROCEDURE PERFORMED: Right total knee arthroplasty - cemented [employer]. ANESTHESIA: General, adductor canal block. PROCEDURE: My seed analysis laboratory assistant, Jina Garrido PA-C, was present for the entire surgical case. She was medically necessary for the entire case because of the complexity of case and to facilitate the performance of the procedure. The ENDLESS TRACK VEHICLE MECHANIC at the back table was not of the skill set for this case to manipulate the instruments including, e.g. the multiple different soft tissue retractors, trial implants, permanent implants. Surgery was extremely difficult. The patient weighs 383 pounds and has a BMI of 49.2 and because of the patient's severe morbid obesity and large size, great care was made to protect all pressure points. The extremity was prepped and draped in a sterile manner. The extremity was exsanguinated by elevation and tourniquet inflated to 300 mmHg. Anterior exposure to the knee was made. Paramedian capsulotomy was performed. The incision was carried through skin and subcutaneous tissue. The paramedian exposure was made. The patient was found to have severe tricompartment osteoarthritis involving all 3 compartments of the knee. The patient found to have an old anterior cruciate ligament injury. Posterior cruciate ligament was preserved. Prepatellar fat pad was excised. Remaining portion of the medial and lateral meniscus were removed. Using the Biomet-Vanguard total knee arthroplasty system, IM guide was used in the distal femur to accept a #72.5 femoral component with a 5-degree valgus cut. An external guide was used for the proximal tibia to accept a 79 mm tibial component. Appropriate balancing was made of both flexion and extension and a 14 mm insert was found to be stable and satisfactory. Undersurface of the patella was removed to accept a 34 mm 3-pronged patellar prosthesis. All trial components were removed. A lateral retinacular release was performed. The knee was irrigated with sterile saline and antibiotic solution. The knee was then injected and anesthetized. Intracapsular injection was made 100 mL of local anesthesia provided by the department of pharmacy. Preparation for cementing was made. Two packages of Palacos bone cement by [employer] were used. First, the tibial component was cemented, which was a 79 mm tibial component, followed by the femoral component, which is a 72.5 mm right femoral component. All excess bone cement was removed. The trial insert was used. Undersurface of the patella was cemented using a 34 mm 3-pronged patellar prosthesis. The bone cement was allowed to harden for 12 minutes and 40 seconds. The trial insert was removed and a 14 x 79 polyethylene plastic was utilized. The patient was found to have excellent balance in both flexion and extension. The wound was irrigated with copious amounts of sterile saline and antibiotic solution. Tourniquet was deflated. All bleeding coagulated. The wound itself was dry. Estimated blood loss was 50 mL. Wound was closed over two 1/8 inch Hemovac drains. Wound was closed in multiple layers with the capsule and extensor mechanism repaired with multiple interrupted #2 Ti-Cron suture, subcutaneous layers with 0 Vicryl and 2-0 Vicryl, skin was approximated with skin dolores. Sterile dressing was applied. The patient tolerated the procedure well and was taken to the recovery room in stable and satisfactory condition. MD DUTCH Marino/guillermina , 01:51 PM , 02:01 PM
--- NOTE | 2018-02-15 15:12 | XR ---
EXAM DATE: 02/15/2018 2:50 PM EDT AGE/SEX: 57 years / Male INDICATIONS: Post op right knee surgery. CLINICAL DATA: This is the patient's initial encounter. Patient reports that signs and symptoms have been present for 1 day and indicates a pain score of Nonresponsive. MEDICAL/SURGICAL HISTORY: Non-responsive. Non-responsive. [place] [facility] [place]4VWS[place] 12/09/2011. . FINDINGS: 2 view right knee demonstrates a total knee arthroplasty. There is no complications. No fracture seen CONCLUSION: Total knee arthroplasty in good position Electronically signed by: Dheeraj Orourke MD 02/15/2018 3:10 PM EDT
[2018-02-15 15:34] LABS: Prothrombin Time 10.4 sec (9.8-11.6)
[2018-02-15] MEDS ORDERED: Dextrose 50% in Water 50 ML Vial IV.PUSH PRN (15:50)
--- NOTE | 2018-02-15 15:50 | P.CONIM ---
History of Present Illness Service: [facility] Consult date: 02/15/18 Requesting Physician: Los Ayala Reason for Consult: Medical evaluation Primary Care Provider: UNKNOWN Family Provider: UNKNOWN History of Present Illness: 57 y/o male with a history of CHF, COPD, HLD, HTN and DM underwent a Right total knee on 02/15/[address] Billingsley. [facility] was consulted for medical evaluation. Patient seen and examined, he is sitting up in the chair. He states the pain is bearable, was just given pain medication. Denies any chest pain, appears comfortable. Review of Systems All other systems reviewed negative except as stated in HPI [facility] - History History Provided By: Patient - Medical History Medical History: Medical History (Last Reviewed 02/15/18 @ 17:32 by DORCAS Flores) CHF (congestive heart failure) COPD (chronic obstructive pulmonary disease) Diabetes 1.5, managed as type 2 Diabetic neuropathy GERD (gastroesophageal reflux disease) History of herniated intervertebral disc Joint pain Neck pain Osteoarthritis (arthritis due to wear and tear of joints) - Surgical History Surgical History: Surgical History (Last Reviewed 02/15/18 @ 17:32 by DORCAS Flores) History of arthroscopy of both knees History of carpal tunnel surgery History of carpal tunnel surgery of left wrist History of laminectomy Hx of rotator cuff surgery - Family History Family History: Family History (Last Reviewed 02/15/18 @ 17:32 by DORCAS Flores) Other Congestive heart failure Coronary artery disease - Social History I have reviewed the patient's Social History: Yes - Tobacco History Second Hand Smoke Exposure: No Smoking Status: Never smoker - Alcohol History How Often Do You Have a Drink Containing Alcohol: Never - Substance Use History Substance History: No History of Abuse Medications and Allergies Active Medications: Active Medications Hydrocodone Bitart/Acetaminophen ([place] 10/325) 1 tab PO Q4H PRN PRN Reason: PAIN LESS THAN 5 ON SCALE Hydrocodone Bitart/Acetaminophen ([place] 10/325) 1 tab PO Q6H PRN PRN Reason: PAIN SCALE 5 TO 10 Al Hydroxide/Mg Hydroxide (Milk Of Magnesia Liq) 30 ml PO BID PRN PRN Reason: Mild Constipation Atorvastatin Calcium (Lipitor) 80 mg PO HS [facility] Bisacodyl (Dulcolax Supp) 10 mg RECTAL DAILY PRN PRN Reason: SEVERE CONSITIPATION Chlorhexidine Gluconate (Hibiclens 4% Topical) 1 applicatio TOPICAL ONCE [facility] Stop: 02/19/18 09:14 Clonidine HCl (Catapres) 0.2 mg PO BID [facility] Sodium Chloride 73.07 ml/Ropivacaine 24.63 ml/Ketorolac Tromethamine 30 mg/ Epinephrine HCl 0.5 mg/Clonidine HCl 80 mcg 0 ml P-ARTICULR UNSCH [facility] Stop: 02/15/18 17:00 Diazepam (Valium) 5 mg PO HS [facility] Ferrous Sulfate (Ferosul) 325 mg PO DAILY [facility] Folic Acid (Folic Acid) 1 mg PO DAILY [facility] Furosemide (Lasix) 20 mg PO DAILY [facility] Glipizide (Glucotrol) 10 mg PO BID [facility] Hydrochlorothiazide (Hydrodiuril) 25 mg PO DAILY [facility] Lactated Ringer's (Lr 1000 Ml Inj) 1,000 mls @ 30 mls/hr IV.SIG .Q24H [facility] Stop: 02/16/18 09:14 Last Admin: 02/15/18 10:15 Dose: 30 mls/hr Sodium Chloride (Ns Inj) 500 mls @ 30 mls/hr IV.SIG .Q10H [facility] Stop: 02/17/18 09:59 Vancomycin HCl 1,000 mg/ (Sodium Chloride) 250 mls @ 250 mls/hr IV.SIG JAW SKINNER [facility] Stop: 02/18/18 09:15 Last Infusion: 02/15/18 11:25 Dose: Infused Cefazolin Sodium/Dextrose (Ancef 2 Gm Premix Inj) 2 gm in 50 mls @ 100 mls/hr IV.SIG JAW SKINNER [facility] Stop: 02/19/18 09:59 Last Admin: 02/15/18 11:50 Dose: 100 mls/hr Cefazolin Sodium 1,000 mg/ (Sodium Chloride) 100 mls @ 200 mls/hr IV.SIG Q6H [facility] Stop: 02/16/18 06:29 Lactulose (Lactulose Liq) 30 ml PO DAILY PRN PRN Reason: SEVERE CONSITIPATION Losartan Potassium (Cozaar) 100 mg PO DAILY [facility] Metformin HCl (Glucophage) 500 mg PO BID [facility] Morphine Sulfate (Morphine Inj) 4 mg IV.PUSH Q3H PRN PRN Reason: BREAKTHROUGH PAIN Pantoprazole Sodium (Protonix) 40 mg PO DAILY [facility] Pioglitazone HCl (Actos) 15 mg PO DAILY [facility] Pregabalin (Lyrica) 150 mg PO BID [facility] Senna/Docusate Sodium (Joana-Colace) 1 tab PO BID [facility] Sennosides (Senokot) 17.2 mg PO BID PRN PRN Reason: Moderate Constipation Sodium Chloride (Ns Flush) 2 ml IV.FLUSH BID [facility] Sodium Chloride (Ns Flush) 2 ml IV.FLUSH PRN PRN PRN Reason: FLUSH AFTER USING IV ACCESS Tamsulosin HCl (Flomax) 0.4 mg PO DAILY [facility] Vitamin D (Vitamin D3) 1,000 unit PO DAILY [facility] Warfarin Sodium (Coumadin) 0 mg PO DAILY@1600 [facility]; Protocol Warfarin Sodium (Coumadin) 10 mg PO ONCE ONE Stop: 02/15/18 15:01 Zolpidem Tartrate (Ambien) 10 mg PO [facility] Allergies Allergy/AdvReac Type Severity Reaction Status Date / Time Sulfa (Sulfonamide Allergy Severe RASH Verified 12/12/17 10:53 Antibiotics) Home Medications Medication Instructions Recorded Confirmed Type aspirin 81 mg PO DAILY 12/12/17 02/15/18 History atorvastatin 80 mg PO HS 12/12/17 02/15/18 History celecoxib 200 mg PO DAILY 12/12/17 02/15/18 History clonidine HCl 1 tab PO BID 12/12/17 02/15/18 History diazepam 5 mg PO HS 12/12/17 02/15/18 History glipizide 10 mg PO BID 12/12/17 02/15/18 History losartan-hydrochlorothiazide 1 tab PO DAILY 12/12/17 02/15/18 History metformin 500 mg PO BID 12/12/17 02/15/18 History omeprazole 40 mg PO DAILY 12/12/17 02/13/18 History pioglitazone 15 mg PO DAILY 12/12/17 02/13/18 History pregabalin 150 mg PO BID 12/12/17 02/13/18 History tamsulosin 0.4 mg PO DAILY 12/12/17 02/15/18 History zolpidem 10 mg PO HS 12/12/17 02/15/18 History cholecalciferol (vitamin D3) 1,000 unit PO DAILY 02/13/18 02/15/18 History [Vitamin D3] ferrous sulfate 325 mg PO DAILY 02/13/18 02/15/18 History folic acid 1 mg PO DAILY 02/13/18 02/15/18 History furosemide 20 mg PO DAILY 02/13/18 02/15/18 History multivitamin [One Daily] 1 tab PO DAILY 02/13/18 02/15/18 History turmeric root extract 500 mg PO DAILY 02/13/18 02/15/18 History insulin glargine [Lantus U-100 10 unit SUB-Q PRN 02/15/18 History Insulin] Exam Vital signs: Vital Signs 02/15/18 09:48 02/15/18 10:28 02/15/18 14:12 Temperature 99.2 F 98.7 F Pulse Rate 59 L 59 L 73 Respiratory Rate 20 20 Blood Pressure 127/73 145/82 H Pulse Oximetry 96 96 100 02/15/18 14:15 02/15/18 14:28 02/15/18 14:30 Temperature Pulse Rate 66 65 Respiratory Rate 18 21 20 Blood Pressure 136/78 137/78 Pulse Oximetry 100 100 02/15/18 14:45 02/15/18 15:00 02/15/18 15:15 Temperature Pulse Rate 61 60 60 Respiratory Rate 16 17 17 Blood Pressure 143/81 H 141/78 H 143/82 H Pulse Oximetry 100 100 100 02/15/18 15:38 Temperature Pulse Rate Respiratory Rate 23 Blood Pressure Pulse Oximetry Intake & Output 02/14/18 02/15/18 02/15/18 18:59 06:59 18:59 Intake Total 850 / 850 Output Total 250 / 250 Balance 600 / 600 Weight 170.8 kg Intake: IV 250 / 250 Vancomycin Inj 1,000 MG In NS 250 / 250 Inj 250 ML @ 250 mls/hr IV.SIG JAW SKINNER [facility] Rx#:[id number] Anesthesia Amount 600 / 600 Output: Estimated Blood Loss 50 / 50 Urine Amount (Catheter) 200 / 200 Straight 200 / 200 Other: Weight On Admission 170.8 kg Narrative: GENERAL: This is a well-nourished, well-developed patient, in no apparent distress. CARDIOVASCULAR: Regular rate and rhythm without murmurs, gallops, or rubs. RESPIRATORY: Clear to auscultation. Breath sounds equal bilaterally. No wheezes , rales, or rhonchi. GASTROINTESTINAL: Abdomen soft, non-tender, nondistended. Normal active bowel sounds MUSCULOSKELETAL: Extremities without clubbing, cyanosis, or edema. NEURO: Alert & Oriented x4 to person, place, time, situation. Moves all ext x4 Results - Labs Labs: Laboratory Results - last 24 hr 02/15/18 02/15/18 02/15/18 09:22 09:25 09:25 PT INR POC Glucose 168 H Blood Type O Positive Antibody Screen Negative MTS Gel Crossmatch See Detail 02/15/18 02/15/18 15:03 15:08 PT 10.4 INR 1.0 POC Glucose 173 H Blood Type Antibody Screen MTS Gel Crossmatch - Imaging Impressions Knee X-Ray 02/15/18 14:07 CONCLUSION: Total knee arthroplasty in good position Assessment and Plan - Plan Right total knee arthroplasty -Managed by orthopedics -PT eval and pain medication per ortho CHF, chronic EF in November 2016 40-45% -Monitor for fluid overload -Resume home medications DM, chronic -Accu checks with SSI -Resume home medications -Diabetic diet HTN, chronic -Resume home medications -Monitor vitals COPD, not in exacerbation -Duonebs as needed DVT prophylaxis: per ortho Discussed Condition With: Patient and epic beacon specialists Planning: per ortho
[2018-02-15 17:34] VITALS: RESP 18
[2018-02-15] MEDS: Insulin NovoLOG Aspart Correctional Sugar Inj SQ SCH ×2 (19:37→21:14)
[2018-02-15] MEDS ORDERED: Zolpidem Tartrate 5 MG Tablet PO SCH (21:00)
[2018-02-15] MEDS ORDERED: diazePAM 5 MG Tablet PO SCH (21:00)
[2018-02-15] MEDS: Pregabalin 75 MG Capsule PO SCH (21:12)
[2018-02-15] MEDS: glipiZIDE 10 MG Tablet PO SCH (21:13)
[2018-02-15] MEDS: Senna/Docusate Sodium 8.6/50 MG Tablet PO SCH (21:13)
[2018-02-16 04:33] LABS: Hematocrit 31.8 % (39.0-51.0); Hemoglobin 10.4 gm/dL (13.0-17.0)
--- NOTE | 2018-02-16 06:52 | P.PNOP ---
Subjective Interval history: pt has post operative left knee pain he would like to go rehab today Physical Exam Vital signs: Vital Signs 02/15/18 09:48 02/15/18 10:28 02/15/18 14:12 Temperature 99.2 F 98.7 F Pulse Rate 59 L 59 L 73 Respiratory Rate 20 20 Blood Pressure 127/73 145/82 H Pulse Oximetry 96 96 100 02/15/18 14:15 02/15/18 14:28 02/15/18 14:30 Temperature Pulse Rate 66 65 Respiratory Rate 18 21 20 Blood Pressure 136/78 137/78 Pulse Oximetry 100 100 02/15/18 14:45 02/15/18 15:00 02/15/18 15:15 Temperature Pulse Rate 61 60 60 Respiratory Rate 16 17 17 Blood Pressure 143/81 H 141/78 H 143/82 H Pulse Oximetry 100 100 100 02/15/18 15:30 02/15/18 15:38 02/15/18 15:45 Temperature Pulse Rate 57 L 55 L Respiratory Rate 24 23 20 Blood Pressure 126/56 L 135/71 Pulse Oximetry 100 100 02/15/18 16:00 02/15/18 17:00 02/15/18 20:00 Temperature 98.7 F 97.4 F L 97.3 F L Pulse Rate 55 L 56 L 64 Respiratory Rate 17 18 18 Blood Pressure 128/82 173/93 H 114/68 Pulse Oximetry 100 94 L 95 02/16/18 00:00 02/16/18 02:00 Temperature 98.3 F 98 F Pulse Rate 66 60 Respiratory Rate 18 18 Blood Pressure 113/60 113/56 L Pulse Oximetry 95 95 Intake & Output 02/15/18 02/15/18 02/16/18 06:59 18:59 06:59 Intake Total 1430 / 1430 300 / 300 Output Total 340 / 340 95 / 95 Balance 1090 / 1090 205 / 205 Weight 170.8 kg 173.3 kg Intake: IV 350 / 350 100 / 100 Vancomycin Inj 1,000 MG In NS 250 / 250 Inj 250 ML @ 250 mls/hr IV.SIG [facility] Rx#:[id number] Ancef Inj 1,000 MG In NS Inj 100 / 100 100 / 100 100 ML @ 200 mls/hr IV.SIG Q6H [facility] Rx#:[id number] Oral 480 / 480 200 / 200 Anesthesia Amount 600 / 600 Output: Estimated Blood Loss 50 / 50 Urine Amount (Catheter) 200 / 200 Straight 200 / 200 Wound Drainage 95 / 95 # 1 Right Knee Other: # Voids 1,200 Weight On Admission 170.8 kg Narrative: seen and examined by Dr. Los Ayala left knee dressing dry and intact skin itself is clear +NVI - Urinary Catheter Management Straight Cath placed during this visit: no Results - Labs CBC & Chem 7: 02/16/18 04:10 Laboratory Results - last 24 hr 02/15/18 02/15/18 02/15/18 09:22 09:25 09:25 Hgb Hct PT INR POC Glucose 168 H Blood Type O Positive Antibody Screen Negative MTS Gel Crossmatch See Detail 02/15/18 02/15/18 02/15/18 15:03 15:08 21:04 Hgb Hct PT 10.4 INR 1.0 POC Glucose 173 H 266 H Blood Type Antibody Screen MTS Gel Crossmatch 02/16/18 04:10 Hgb 10.4 L Hct 31.8 L PT INR POC Glucose Blood Type Antibody Screen MTS Gel Crossmatch - Imaging Impressions Knee X-Ray 02/15/18 14:07 CONCLUSION: Total knee arthroplasty in good position Assessment and Plan - Assessment and Plan POD # 1 s/p L TKA low dose coumadin for dvt prop PT-WBAT norco rx in chart discharge to SNF today, orthopedically stable
[2018-02-16] MEDS ORDERED: hydroCHLOROthiazide 25 MG Tablet PO SCH (09:00)
[2018-02-16] MEDS ORDERED: Folic Acid 1 MG Tablet PO SCH (09:00)
[2018-02-16] MEDS ORDERED: Ferrous Sulfate 325 MG Tablet PO SCH (09:00)
[2018-02-16] MEDS ORDERED: Furosemide 20 MG Tablet PO SCH (09:00)
[2018-02-16] MEDS: Pregabalin 75 MG Capsule PO SCH (11:08)
[2018-02-16] MEDS: glipiZIDE 10 MG Tablet PO SCH (11:09)
[2018-02-16] MEDS: Senna/Docusate Sodium 8.6/50 MG Tablet PO SCH (11:09)
--- NOTE | 2018-02-16 12:22 | P.PN ---
Subjective Interval history: Follow-up for right total knee: Patient sitting up in chair, awake alert oriented 3. Indicates pain is well controlled. Has not had a bowel movement. No fever. No chest pain, shortness of breath. Had a good night Physical Exam Vital signs: Vital Signs 02/15/18 14:12 02/15/18 14:15 02/15/18 14:28 Temperature 98.7 F Pulse Rate 73 66 Respiratory Rate 20 18 21 Blood Pressure 145/82 H 136/78 Pulse Oximetry 100 100 02/15/18 14:30 02/15/18 14:45 02/15/18 15:00 Temperature Pulse Rate 65 61 60 Respiratory Rate 20 16 17 Blood Pressure 137/78 143/81 H 141/78 H Pulse Oximetry 100 100 100 02/15/18 15:15 02/15/18 15:30 02/15/18 15:38 Temperature Pulse Rate 60 57 L Respiratory Rate 17 24 23 Blood Pressure 143/82 H 126/56 L Pulse Oximetry 100 100 02/15/18 15:45 02/15/18 16:00 02/15/18 17:00 Temperature 98.7 F 97.4 F L Pulse Rate 55 L 55 L 56 L Respiratory Rate 20 17 18 Blood Pressure 135/71 128/82 173/93 H Pulse Oximetry 100 100 94 L 02/15/18 20:00 02/16/18 00:00 02/16/18 02:00 Temperature 97.3 F L 98.3 F 98 F Pulse Rate 64 66 60 Respiratory Rate 18 18 18 Blood Pressure 114/68 113/60 113/56 L Pulse Oximetry 95 95 95 02/16/18 08:00 Temperature 98.8 F Pulse Rate 63 Respiratory Rate 18 Blood Pressure 135/67 Pulse Oximetry 96 Intake & Output 02/15/18 02/16/18 02/16/18 18:59 06:59 18:59 Intake Total 1430 / 1430 400 / 400 Output Total 340 / 340 95 / 95 Balance 1090 / 1090 305 / 305 Weight 170.8 kg 173.3 kg Intake: IV 350 / 350 200 / 200 Vancomycin Inj 1,000 MG In NS 250 / 250 Inj 250 ML @ 250 mls/hr IV.SIG MECHANICAL SPECIALIST [facility] Rx#:[id number] Ancef Inj 1,000 MG In NS Inj 100 / 100 200 / 200 100 ML @ 200 mls/hr IV.SIG Q6H [facility] Rx#:[id number] Oral 480 / 480 200 / 200 Anesthesia Amount 600 / 600 Output: Estimated Blood Loss 50 / 50 Urine Amount (Catheter) 200 / 200 Straight 200 / 200 Wound Drainage 90 / 95 / 95 # 1 Right Knee 90 95 / 95 Other: # Voids 1,200 Weight On Admission 170.8 kg Narrative: GENERAL: Well-nourished, well-developed patient in no apparent distress. SKIN: Warm and dry. EYES: Pupils equal and round. No scleral icterus. No injection or drainage. CARDIOVASCULAR: Regular rate and rhythm. RESPIRATORY: No accessory muscle use. Clear to auscultation. Breath sounds equal bilaterally. GASTROINTESTINAL: Abdomen soft, non-tender, nondistended. Hepatic and splenic margins not palpable. MUSCULOSKELETAL: Right knee with dressing in place, intact and dry. Expected mild swelling right lower extremity. Bilateral pedal pulses 2+ bilateral. NEUROLOGICAL: Awake, alert oriented 3. No focal deficits. PSYCHIATRIC: Appropriate mood and affect; insight and judgment normal. - Urinary Catheter Management Straight Cath placed during this visit: no Results - Labs CBC & Chem 7: 02/16/18 04:10 Laboratory Results - last 24 hr 02/15/18 02/15/18 02/15/18 15:03 15:08 21:04 Hgb Hct PT 10.4 INR 1.0 POC Glucose 173 H 266 H 02/16/18 04:10 Hgb 10.4 L Hct 31.8 L PT INR POC Glucose - Imaging Impressions Knee X-Ray 02/15/18 14:07 CONCLUSION: Total knee arthroplasty in good position Assessment and Plan - Plan Right total knee arthroplasty -Orthopedic following, has been clear for discharge. SNF recommended -PT eval and pain medication per ortho -Coumadin for DVT prophylaxis -Postop H&H stable CHF, chronic EF in November 2016 40-45% -Monitor for fluid overload -Continue Cozaar and Lasix DM, chronic -Accu checks with SSI -Diabetic diet -Continue Glucophage HTN, chronic -Continue Cozaar, HCTZ, Lasix -Monitor vitals COPD, not in exacerbation -Duonebs as needed DVT prophylaxis: Coumadin Patient stable, will sign off for now Code Status: Full code Discussed Condition With: RN, patient, case management Discharge Planning: SNF placement, likely discharged tomorrow per orthopedic team
[2018-02-16 13:18] VITALS: BP 122/72; PULSE 71; TEMP 98.6; O2SAT 97
[2018-02-16] MEDS: Insulin NovoLOG Aspart Correctional Sugar Inj SQ SCH ×2 (13:43)
== END 2018-02-16 17:16 ==
LOC: HSDI 08:26 → N06 16:23
PROVIDERS: ADMIT Orthopaedic Surgery Orthopaedic Surgery of the Spine; ATTEND Orthopaedic Surgery Orthopaedic Surgery of the Spine